=== PATIENT | female | born 1955 | race Caucasian/White ===

== ENCOUNTER → 2017-05-06 | Outpatient (CLI) | payer BC ==
--- NOTE | 2017-05-06 15:49 | Diagnostic Imaging Report ---
INDICATION: Screening. At this time there are no current complaints. EXAMINATION: Bilateral digital screening mammogram with CAD. The current study was also evaluated with a Computer Aided Detection (CAD) system. COMPARISON: This study was compared to the prior exams of 02/24/2015, 07/07/2012 and 08/27/2010. FINDINGS: The fibroglandular tissue in both breasts is dense. This does limit the sensitivity of this exam. On the MLO view of the right breast, in the midportion of the breast, roughly 7.5 cm from the nipple, there are a few linear calcifications. These were not clearly evident on the prior exam nor can they be identified with certainty on the craniocaudad view of this exam. These calcifications may well be vascular in nature as several vascular calcifications are seen on the craniocaudad view. Even so, I would recommend that a compression/magnification view of these calcifications be obtained in the ML projection for further study. The overall appearance of the breasts has not changed significantly otherwise. There is no primary or secondary sign of malignancy noted. IMPRESSION: Additional mammographic views of the right breast would be recommended for further study. ACR BI-RADS Category 0: Incomplete. (Needs additional imaging evaluation). Result letter will be mailed to the patient. Note: At least 10% of breast cancer is not imaged by mammography. Dictated by: Dictated on workstation # [id number]
== END ==
LOC: RAD 07:15
PROVIDERS: ATTEND Allergy & Immunology
DX: Z12.31 Encounter for screening mammogram for malignant neoplasm of breast (principal)
CPT/HCPCS: 77067

== ENCOUNTER → 2017-05-18 | Outpatient (CLI) | payer BC ==
--- NOTE | 2017-05-18 08:53 | Diagnostic Imaging Report ---
INDICATION: Right breast calcifications. The patient presents for additional views. COMPARISON: 05/06/2017 and 02/24/2015. TECHNIQUE: The patient returned and a magnification ML view as well as a conventional 3D right ML view were performed. The current study was also evaluated with a Computer Aided Detection (CAD) system. FINDINGS: There are some calcifications in the posterior right breast near the nipple line. These are indeterminate. These could potentially be vascular. No associated soft tissue mass is seen. No definite pleomorphism is identified. IMPRESSION: The calcifications in the posterior right breast show some linearity and these may be vascular. Even so, a followup right mammogram in 6 months is recommended to show continued stability. ACR BI-RADS Category 3: Probably benign findings. Result letter will be mailed to the patient. Note: At least 10% of breast cancer is not imaged by mammography. Dictated by: Dictated on workstation # [id number]
== END ==
LOC: RAD 07:57
PROVIDERS: ATTEND Allergy & Immunology
DX: R92.1 Mammographic calcification found on diagnostic imaging of breast (principal)

== ENCOUNTER → 2017-10-20 | Outpatient (CLI) | payer BC ==
--- NOTE | 2017-10-20 11:22 | Diagnostic Imaging Report ---
Indication: Six-month followup right breast calcifications. Correlation is made with prior exam from 05/18/2017 and 05/06/2017. Unilateral right 2-D and 3-D diagnostic mammography was performed. Calcifications in the far posterior right breast at the nipple line are less prominent on today's study and again may be vascular. No mass is seen. Parenchymal pattern is stable. Right axilla is unremarkable. Impression: BI-RADS 3 Stable right mammogram. Additional six-month followup is recommended to confirm stability. ACR BI-RADS Category 3: Probably benign findings. Result letter will be mailed to the patient. Note: At least 10% of breast cancer is not imaged by mammography. Dictated by: Dictated on workstation # [id number]
== END ==
LOC: RAD 07:22
PROVIDERS: ATTEND Allergy & Immunology
DX: R92.1 Mammographic calcification found on diagnostic imaging of breast (principal)

== ENCOUNTER 2018-07-04 12:30 | Outpatient (CLI) | payer BC ==
[~2018-07-04] VITALS: Ht 154.9 cm; Wt 56.7 kg
[2018-07-04] MEDS ORDERED: CYAN100092 IJ (12:44)
[2018-07-04] MEDS ORDERED: ESCI10TA PO (12:44)
[2018-07-04] MEDS ORDERED: CETI10TA17 PO (12:44)
[2018-07-04] MEDS ORDERED: LEVO75TA PO (12:44)
== END 2018-07-04 12:52 | disposition home or self-care (01) ==
LOC: PREOP 12:30
PROVIDERS: ATTEND Surgery
DX: Z01.818 Encounter for other preprocedural examination (principal)

== ENCOUNTER 2018-07-10 07:00 | Day surgery (SDC) | payer BC ==
--- NOTE | 2018-07-06 17:01 | History & Physicial ---
History of Present Illness History of Present Illness Reason for visit/HPI To undergo screening colonoscopy. Denies any family history of colon cancer Date of Admission 07/10/18 Date Seen by a Provider: Jul 06, 2018 Time Seen by a Provider: 16:58 I consulted on this patient on 07/06/18 16:57 Attending Physician Oksana Rosa MD Admitting Physician Doug Rogers MD Consult Allergies and Home Medications Allergies Coded Allergies: No Known Drug Allergies (Unverified , 07/04/18) Home Medications Cetirizine HCl 10 Mg Tablet, 10 MG PO DAILY, (Reported) Cyanocobalamin (Vitamin B-12) 1,000 Mcg/1 Ml Kit, 1,000 MCG IJ q 2 weeks, ( Reported) Escitalopram Oxalate 10 Mg Tablet, 10 MG PO DAILY, (Reported) Levothyroxine Sodium 75 Mcg Tablet, 75 MCG PO DAILY, (Reported) Patient Home Medication List Home Medication List Reviewed: Yes Past Nhkpaji-Xcdydd-Bnptep Hx Patient Social History Marrital Status: Employed/Student: employed Surgeries Yes Section Respiratory No Cardiovascular No Neurological No Genitourinary No Gastrointestinal No Musculoskeletal Osteoporosis, Arthritis, Fibromyalgia Endocrine History of Endocrine Disorders: Yes Endocrine Disorders: Hypothyroidsim HEENT History of HEENT Disorders: No Cancer No Psychosocial History of Psychiatric Problem: No Integumentary History of Skin or Integumenta: No Blood Transfusions History of Blood Disorders: No Family Medical History Significant Family History: No Pertinent Family Hx Review of Systems Constitutional: no symptoms reported EENTM: no symptoms reported Respiratory: no symptoms reported Cardiovascular: no symptoms reported Gastrointestinal: no symptoms reported Genitourinary: no symptoms reported Musculoskeletal: joint pain Skin: no symptoms reported Psychiatric/Neurological: No Symptoms Reported Physical Exam Vital Signs Capillary Refill : Height, Weight, BMI Height: '" Weight: lbs. oz. kg; BMI Method: General Appearance: No Apparent Distress Neck: Normal Inspection Respiratory: Lungs Clear Cardiovascular: Regular Rate, Rhythm Gastrointestinal: Non Tender, Soft Rectal: Deferred Neurologic/Psychiatric: Alert, Oriented x3 Skin: Warm/Dry Assessment/Plan Assessment and Plan lady in need of screening colonoscopy. Polyps, diverticular disease etc. reviewed. Low incidence of iatrogenic perforation and post polypectomy bleeding discussed thoroughly. Seems to be in agreement to proceed Admission Diagnosis Admission Status: Other (Outpt Proc) OKSANA ROSA MD Jul 06, 2018 17:01
[~2018-07-10] VITALS: Ht 154.9 cm; Wt 56.7 kg
[~2018-07-10 07:00] MED LIST: CETI10TA17 PO; CYAN100092 IJ; ESCI10TA PO; LEVO75TA PO
[2018-07-10] MEDS ORDERED: NS IV 500 ML 500 ML IV PRN (07:17)
[2018-07-10] MEDS ORDERED: NS IV 500 ML 500 ML ONE (07:19)
[2018-07-10] MEDS ORDERED: MIDAZOLAM 2 MG/2 ML (VERSED) VIAL IVP ONE (07:30)
[2018-07-10] MEDS ORDERED: fentaNYL INJECTION 100 MCG/2 ML AMP IVP ONE (07:30)
[2018-07-10] MEDS ORDERED: fentaNYL INJECTION 100 MCG/2 ML AMP ONE (07:37)
[2018-07-10] MEDS ORDERED: MIDAZOLAM 2 MG/2 ML (VERSED) VIAL ONE ×4 (07:37→08:19)
[2018-07-10 07:52] VITALS: BP 142/94
--- NOTE | 2018-07-10 08:26 | Conscious Sedation/ASA ---
Conscious Sedation Pre-Proced Time 07:50 ASA Score 2 For ASA 3 and 4: Consider anesthesia and medical clearance. Also, for patients with a history of failed moderate sedation consider anesthesia. Airway Lungs Heart ASA score ASA 1: a normal healthy patient ASA 2: a patient with a mild systemic disease (mid diabetes, controlled hypertension, obesity ASA 3: a patient with a severe systemic disease that limits activity (angina , COPD, prior Myocardial infarction) ASA 4: a patient with an incapacitating disease that is a constant threat to life (CHF, renal failure) ASA 5: a moribund patient not expected to survive 24 hrs. (ruptured aneurysm) ASA 6: a declared brain- patient whose organs are being harvested. For emergent operations, add the letter E after the classification Mallampati Classification Grade 1 Sedation Plan Plan communicated to team members The patient is an appropriate candidate to undergo the planned procedure, sedation, and anesthesia. The patient immediately re-assessed prior to indication. OKSANA CHIRINOS MD Jul 10, 2018 08:26
--- NOTE | 2018-07-10 08:29 | Endo Procedure Record ---
Endo Procedure Report Date of Procedure Last Colonoscopy: No Jul 10, 2018 Surgeon (s) OKSANA CHIRINOS MD Post Procedure/Op Diagnosis normal colonoscopy Procedure Performed colonoscopy to cecum Description of Procedure Anesthesia Type: Conscious Sedation Specimen(s) collected/removed None Description of the Procedure Indication for the procedure: This lady came in for screening colonoscopy. She denied any family history of colon cancer or polyps. Informed consent was obtained after reviewing the procedure in detail. Description of the procedure: She was placed in left lateral decubitus position and her vital signs were monitored. Conscious sedation was achieved using Versed and fentanyl. Digital rectal examination was unremarkable. The colonoscope was then introduced into the rectum and advanced all the way up to the cecum. The quality of bowel preparation was excellent. The scope was then withdrawn slowly and the mucosa examined in a systematic fashion. There was no abnormality. She tolerated the procedure well and was taken back to the nursing area in a stable condition. Impression: Normal screening colonoscopy. No family history. Recommend repeat in 10 years Copy Copies To 1: NADIRA DOTSON MD, XAVIER M MD Jul 10, 2018 08:29
--- NOTE | 2018-07-10 08:30 | Discharge Inst-Simple/Standard ---
Discharge Inst-Standard Discharge Medications New, Converted or Re-Newed RX: Other Patient Instructions/Follow Up Plan of Care/Instructions/FU: repeat colonoscopy in 10 years Activity as Tolerated: Yes Discharge Diet: No Restrictions OKSANA CHIRINOS MD Jul 10, 2018 08:30
[2018-07-10 08:55] VITALS: BP 102/53
[2018-07-10 09:20] VITALS: BP 108/61
[2018-07-10 09:40] VITALS: BP 108/61
== END 2018-07-10 09:40 | disposition home or self-care (01) ==
LOC: ENDO 07:00
PROVIDERS: ATTEND Surgery
DX: Z12.11 Encounter for screening for malignant neoplasm of colon (principal); M81.0 Age-related osteoporosis without current pathological fracture; M79.7 Fibromyalgia; M19.91 Primary osteoarthritis, unspecified site; E03.9 Hypothyroidism, unspecified; Z79.899 Other long term (current) drug therapy

== ENCOUNTER → 2019-05-18 | Outpatient (CLI) | payer BC ==
--- NOTE | 2019-05-18 16:21 | Diagnostic Imaging Report ---
INDICATION: Follow-up right breast calcifications. Comparison is made with prior mammograms from 10/20/2017 and 05/06/2017. 2-D and 3-D bilateral diagnostic mammography was performed. The current study was also evaluated with a Computer Aided Detection (CAD) system. 3-D tomosynthesis was also performed and reviewed. FINDINGS: Both breasts remain heterogeneously dense, limiting the sensitivity of mammography. Previously noted calcifications in the far posterior right breast at the nipple line are barely visible on today's study. No concerning calcifications are identified. These now show two years of stability. No mass or malignant-appearing microcalcifications are seen. Axillae are unremarkable. IMPRESSION: No mammographic features suspicious for malignancy are identified. Right breast calcifications show two years of stability. Patient may return to routine annual screening mammography. ACR BI-RADS Category 2: Benign findings. Result letter will be mailed to the patient. Note: At least 10% of breast cancer is not imaged by mammography. Dictated by: Dictated on workstation # [id number]
== END ==
LOC: RAD 13:33
PROVIDERS: ATTEND Nurse Practitioner
DX: R92.1 Mammographic calcification found on diagnostic imaging of breast (principal)
CPT/HCPCS: 77066

== ENCOUNTER → 2021-05-26 | Outpatient (CLI) | payer BC, MEDICARE ==
--- NOTE | 2021-05-26 13:35 | Diagnostic Imaging Report ---
INDICATION: Routine screening. Comparison is made with prior mammogram from 05/18/2019 and 05/06/2017. 2-D and 3-D bilateral screening mammography was performed with CAD. Both breasts are heterogeneously dense, limiting the sensitivity of mammography. The peripheral pattern is stable. No mass or malignant-appearing microcalcifications are seen. Axillae are unremarkable. IMPRESSION: BI-RADS Category 1 No mammographic features suspicious for malignancy are identified. ACR BI-RADS Category 1: Negative. Result letter will be mailed to the patient. Note: At least 10% of breast cancer is not imaged by mammography. Dictated by: Dictated on workstation # [id number]
== END ==
LOC: RAD 10:00
PROVIDERS: ATTEND Surgery
DX: Z12.31 Encounter for screening mammogram for malignant neoplasm of breast (principal)
CPT/HCPCS: 77063; 77067